=== PATIENT | female | born 1955 | race Caucasian/White ===

== ENCOUNTER 2020-09-23 04:07 | Inpatient (IN) | payer MEDICARE, OTHER ==
[~2020-09-23] VITALS: Ht 162.6 cm; Wt 50.0 kg
[~2020-09-23 04:07] MED LIST: ALLERGY10 M1 PO; BUPRENORPHIN-N1 EACH SL; BUSPAR 5MG TABLE5 MG PO; CATAPRES 0.1MG0.1 MG PO; INDERAL TAB 2020 MG PO; IPRAT-ALBUT 0.5-3 ML INH; KLONOPIN1 MG PO; PAXIL20 MG PO; PRINIVIL5 MG PO; PROVENTIL HFA6.7 GM INH; SINEQUAN CAP 5050 MG PO; VISTARIL25 MG PO; ZANAFLEX4 MG PO; ZITHROMAX500 MG PO
[2020-09-23] MEDS ORDERED: NORVASC10 MG PO ×2 (06:04→06:47)
[2020-09-23] MEDS ORDERED: SINEQUAN CAP 5050 MG PO (06:48)
[2020-09-23] MEDS ORDERED: FOLBEE TABLET1 EACH PO (06:49)
[2020-09-23] MEDS ORDERED: PAXIL40 MG PO (06:50)
[2020-09-23] MEDS ORDERED: THERAGRAN M TAB1 EA PO (06:50)
[2020-09-23] MEDS ORDERED: DALIRESP250 MCG PO (06:51)
[2020-09-23] MEDS ORDERED: SUBOXONE 8 MG-1 EACH SL (06:52)
[2020-09-23] MEDS ORDERED: BUSPAR 10MG10 MG PO (06:52)
[2020-09-23] MEDS ORDERED: LISINOPRIL20 MG PO (06:53)
[2020-09-23] MEDS ORDERED: TRELEGY ELLIPT1 EACH INH (06:58)
[2020-09-23] MEDS ORDERED: PROAIR HFA8.5 GM INH (07:01)
[2020-09-23] MEDS ORDERED: COMBIVENT RESPIM4 GM INH (07:03)
[2020-09-23] MEDS ORDERED: IBU800 MG PO (07:09)
[2020-09-23 07:54] LABS: BUN/CREATININE RATIO 29 (0-10)
[2020-09-23 09:25] LABS: HEMOGLOBIN 9.2 gm/dl (12.3-15.3); RED BLOOD COUNT 3.42 M/UL (4.00-5.10); WHITE BLOOD COUNT 8.8 K/UL (4.5-11.0)
[2020-09-23] MEDS ORDERED: LOPRESSOR 25 MG25 MG PO (09:40)
[2020-09-23] MEDS ORDERED: LORATADINE10 MG PO (09:41)
[2020-09-23] MEDS ORDERED: MEDROL DOSEPAK 24 MG PO (09:42)
[2020-09-23] MEDS ORDERED: GABAPENTIN300 MG PO (09:45)
--- NOTE | 2020-09-23 14:43 | NUR ---
RECTAL TEMP PROBE REMOVED DUE TO INCONSISTENCY AND INACCURACY
--- NOTE | 2020-09-24 18:05 | NUR ---
UNABLE TO REPOSITION PT FREQUENTLY R/T RESTLESSNESS. UNABLE TO PREFORM ORAL CARE. PT VERY RESTLESS MOST OF SHIFT. MEDICATIONS CHANGED PER MD. PT REPOSITIONING SELF IN BED. ATTEMPTING TO TALK WITH ETT IN PLACE. NO ATTEMPTS MADE TO PULL TUBE OR CATHETER. UNABLE TO INCREASE MEDICATIONS R/T BRADYCARDIA.
[2020-09-25 11:28] LABS: HEMOGLOBIN 9.1 gm/dl (12.3-15.3); RED BLOOD COUNT 3.39 M/UL (4.00-5.10); WHITE BLOOD COUNT 6.5 K/UL (4.5-11.0)
[2020-09-25 11:52] LABS: BUN/CREATININE RATIO 39 (0-10)
[2020-09-26 04:20] LABS: HEMOGLOBIN 8.2 gm/dl (12.3-15.3); WHITE BLOOD COUNT 5.3 K/UL (4.5-11.0)
[2020-09-26 04:34] LABS: RED BLOOD COUNT 3.05 M/UL (4.00-5.10)
[2020-09-26 04:50] LABS: BUN/CREATININE RATIO 27 (0-10)
[2020-09-27 05:59] LABS: HEMOGLOBIN 9.8 gm/dl (12.3-15.3)
[2020-09-27 06:00] LABS: RED BLOOD COUNT 3.67 M/UL (4.00-5.10)
[2020-09-27 06:19] LABS: BUN/CREATININE RATIO 22 (0-10)
[2020-09-27] MEDS ORDERED: FLAGYL500 MG PO (11:22)
[2020-09-27] MEDS ORDERED: LEVOFLOXACIN750 MG PO (11:22)
[2020-09-27] MEDS ORDERED: MILLIPRED5 MG PO (11:22)
[2020-09-27] MEDS ORDERED: LASIX20 MG PO (11:24)
== END 2020-09-27 18:01 | disposition home health service (06) | DRG 208 ==
LOC: CCU 05:40 → MED SURG 4 09-26 17:41
PROVIDERS: Internal Medicine; Internal Medicine Pulmonary Disease; ADMIT Internal Medicine
PROC: 3E033XZ Introduction of Vasopressor into Peripheral Vein, Percutaneous Approach (ICD-10-PCS; principal; 2020-09-23)
PROC: 5A1945Z Respiratory Ventilation, 24-96 Consecutive Hours (ICD-10-PCS; 2020-09-23)
PROC: 0BH17EZ Insertion of Endotracheal Airway into Trachea, Via Natural or Artificial Opening (ICD-10-PCS; 2020-09-23)
PROC: 5A09357 Assistance with Respiratory Ventilation, Less than 24 Consecutive Hours, Continuous Positive Airway Pressure (ICD-10-PCS; 2020-09-23)
DX: J96.21 Acute and chronic respiratory failure with hypoxia (principal); J69.0 Pneumonitis due to inhalation of food and vomit; E43 Unspecified severe protein-calorie malnutrition; J44.1 Chronic obstructive pulmonary disease with (acute) exacerbation; J44.0 Chronic obstructive pulmonary disease with (acute) lower respiratory infection; K76.6 Portal hypertension; F11.20 Opioid dependence, uncomplicated; E87.1 Hypo-osmolality and hyponatremia; Z68.1 Body mass index [BMI] 19.9 or less, adult; Z20.822 Contact with and (suspected) exposure to COVID-19; J96.22 Acute and chronic respiratory failure with hypercapnia; K74.60 Unspecified cirrhosis of liver; B19.20 Unspecified viral hepatitis C without hepatic coma; D63.8 Anemia in other chronic diseases classified elsewhere; E86.0 Dehydration; I11.9 Hypertensive heart disease without heart failure; F10.20 Alcohol dependence, uncomplicated; F41.9 Anxiety disorder, unspecified; F32.9 Major depressive disorder, single episode, unspecified; F17.210 Nicotine dependence, cigarettes, uncomplicated; Z98.51 Tubal ligation status; Z88.5 Allergy status to narcotic agent; Z88.0 Allergy status to penicillin; Z88.7 Allergy status to serum and vaccine; Z91.14 Patient's other noncompliance with medication regimen
CPT/HCPCS: 36415; 36600; 71045; 80048; 80053; 80202; 82140; 82150; 82550; 82553; 82803; 83605; 83615; 83690; 83735; 83880; 84100; 84484; 85025; 85610; 86140; 86738; 87040; 87070; 87077; 87081; 87205; 87278; 93005; 94002; 94003; 94640; 94660; 94664; 94760; 97161; C9113; J0360; J0692; J1650; J1940; J2185; J2250; J2704; J2920; J3370; J7030; J7070